=== PATIENT | male | born 1985 | race Caucasian/White ===

== ENCOUNTER 2017-03-25 16:44 | Emergency (ER) | payer SELFPAY ==
--- NOTE | 2017-03-25 19:00 | XRay Report ---
FINAL REPORT EXAM: XR KNEE 3V RT HISTORY: injury with swelling and redness TECHNIQUE: Three views of the right knee PRIORS: None. FINDINGS: The bones are normally aligned and mineralized. There is osteophyte formation of the medial, lateral and patellofemoral joints. There is no evidence of acute fracture. The soft tissues are unremarkable. IMPRESSION: Mild tricompartmental osteoarthrosis
[2017-03-25] MEDS ORDERED: NORCO 5/325 PO ONE (19:26)
[2017-03-25] MEDS ORDERED: TORADOL IM ONE (19:26)
--- NOTE | 2017-03-25 20:06 | Emergency Department Report ---
HPI - General Chief Complaint: Extremity Injury, Lower Time Seen by Provider: 03/25/17 18:54 - HPI HPI: 31-year-old male presents today complaining of right knee pain 2 days. Patient has history of torn meniscus but states that his orthopedic back home did not want to do his surgery. Patient has gotten his knee drained twice and would like to do so today. Rates his pain as a 10 out of 10. Denies any recent injury or trauma. Denies numbness, weakness, paresthesias. Denies fever , chills, nausea, vomiting, chest pain, shortness of breath, abdominal pain. ED Past Medical Hx - Past Medical History Additional medical history: torn miniscus right knee.gout - Surgical History Additional Surgical History: gastric sleave,right knee drained - Social History Smoking Status: Never Smoker Substance Use Type: None - Medications Home Medications: Home Medications Medication Instructions Recorded Confirmed Last Taken Type Ibuprofen 600 mg PO Q6H #30 tablet 03/25/17 Unknown Rx traMADol [Ultram 50 MG tab] 50 mg PO Q6HR PRN #20 tablet 03/25/17 Unknown Rx ED Review of Systems ROS: Stated complaint: KNEE PAIN Other details as noted in HPI Constitutional: denies: chills, fever, malaise Eyes: denies: eye pain ENT: denies: ear pain, throat pain, congestion Respiratory: denies: cough, shortness of breath, wheezing Cardiovascular: denies: chest pain, palpitations Endocrine: no symptoms reported Gastrointestinal: denies: abdominal pain, nausea, vomiting Musculoskeletal: joint swelling, arthralgia Skin: denies: rash, lesions Neurological: denies: headache, weakness, numbness, paresthesias Physical Exam - Physical Exam Vital Signs: Vital Signs 03/25/17 17:44 Temperature 98.8 F Pulse Rate 108 H Respiratory 18 Rate Blood Pressure 144/70 O2 Sat by Pulse 100 Oximetry Physical Exam: GENERAL: The patient is well-developed and well-nourished. Patient is in NAD. HEAD: Normocephalic. Atraumatic. NECK: Supple, nontender, without lymphadenopathy. No meningitic signs are noted. CHEST/LUNGS: Clear to auscultation throughout. HEART/CARDIOVASCULAR: Regular rate and rhythm. No murmurs, rubs or gallops. ABDOMEN: Abdomen is soft, nontender. Bowel sounds normoactive. No guarding or rebound tenderness. RIGHT KNEE: Tenderness to palpation over medial, posterior and lateral aspect of the right knee. Positive for edema. No erythema, ecchymosis or deformity noted. Limited range of motion due to pain. Antalgic gait. No sensation. Peripheral pulses intact. Capillary refill less than 2 seconds. NEURO: Alert and oriented x 3. GCS score of 15. ED Course Vital Signs 03/25/17 17:44 Temperature 98.8 F Pulse Rate 108 H Respiratory 18 Rate Blood Pressure 144/70 O2 Sat by Pulse 100 Oximetry ED Medical Decision Making - Radiology Data Radiology results: report reviewed Knee x-ray: The bones are normally aligned and mineralized. There is osteophyte formation of the medial, lateral and patellofemoral joints. There is no evidence of acute fracture. The soft tissues are unremarkable. Impression: Mild tricompartmental osteoarthrosis - Medical Decision Making 31-year-old male presents today complaining of right knee pain. Positive for history of meniscus tear. Patient reported some symptomatic relief post medication. He has been provided with a referral for orthopedic to follow-up with. Patient is in no acute distress at this time. He will be discharged home and is encouraged to follow up with a primary care provider. He will be sent home on tramadol and ibuprofen and is encouraged to return to the emergency room for any worsening symptoms. Critical care attestation.: If time is entered above; I have spent that time in minutes in the direct care of this critically ill patient, excluding procedure time. ED Disposition Clinical Impression: Knee pain, right Qualifiers: Chronicity: acute Qualified Code(s): M25.561 - Pain in right knee Disposition: - TO HOME OR SELFCARE Is pt being admited?: No Does the pt Need Aspirin: No Condition: Stable Instructions: Knee Pain (ED) Additional Instructions: Follow-up with primary care provider and orthopedic. Return to the emergency department if symptoms worsen. Prescriptions: Ibuprofen 600 mg PO Q6H #30 tablet traMADol [Ultram 50 MG tab] 50 mg PO Q6HR PRN #20 tablet PRN Reason: Pain Referrals: CALIN PENA MD [Primary Care Provider] - 3-5 Days DEVYN PARISI MD [Staff Physician] - 3-5 Days Forms: Work/School Release Form(ED) Time of Disposition: 20:08
[2017-03-25 20:09] VITALS: BP 128/76
== END 2017-03-25 20:55 | disposition home or self-care (01) ==
LOC: ED 16:44
DX: M25.561 Pain in right knee (principal)
CPT/HCPCS: 29505; 73562; 96372; 99283; J1885